=== PATIENT | male | born 1990 | race Caucasian/White ===

== ENCOUNTER 2025-06-09 12:58 | Day surgery (SDC) | payer OTHER ==
[2025-06-03 11:28] VITALS: BMI 25.9
[2025-06-09] MEDS ORDERED: KETAMINE HCL 100 MG/ML - 5ML VIAL ONE (13:55)
[2025-06-09] MEDS ORDERED: ETOMIDATE 20 MG/10 ML VIAL IVPUSH ONE (14:02)
[2025-06-09 15:19] VITALS: RESP 18; TEMP 97.2
[2025-06-09 16:26] VITALS: BP 118/72; PULSE 82
== END 2025-06-09 16:28 | disposition home or self-care (01) ==
LOC: FECT 12:58 → SUATTDRO 13:00 → FECT 16:28
PROVIDERS: ATTEND Student in an Organized Health Care Education/Training Program
PROC: GZB4ZZZ Other Electroconvulsive Therapy (ICD-10-PCS; principal; 2025-06-09 14:17)
DX: F32.A Depression, unspecified (principal)
CPT/HCPCS: 90870; 94760

== ENCOUNTER 2025-06-10 06:21 | Day surgery (SDC) | payer OTHER ==
[2025-06-07 07:55] VITALS: BMI 25.9
[2025-06-10 07:06] VITALS: RESP 16
[2025-06-10] MEDS ORDERED: KETAMINE HCL 100 MG/ML - 5ML VIAL ONE (07:51)
[2025-06-10] MEDS ORDERED: ETOMIDATE 20 MG/10 ML VIAL IVPUSH ONE (08:07)
[2025-06-10] MEDS ORDERED: PROPOFOL 20 ML ONE (08:08)
[2025-06-10 09:30] VITALS: TEMP 97.9
[2025-06-10] MEDS: ONDANSETRON *ODT* 4 MG TABLET ONE (10:06)
[2025-06-10 10:23] VITALS: BP 108/75; PULSE 88
== END 2025-06-10 10:10 | disposition home or self-care (01) ==
LOC: FECT 06:21
PROVIDERS: ATTEND Student in an Organized Health Care Education/Training Program
PROC: GZB4ZZZ Other Electroconvulsive Therapy (ICD-10-PCS; principal; 2025-06-10 08:19)
DX: F32.A Depression, unspecified (principal)
CPT/HCPCS: 90870; 94760; Q0162

== ENCOUNTER 2025-06-21 09:47 | Day surgery (SDC) | payer OTHER ==
[2025-06-20 11:48] VITALS: BMI 25.8
[2025-06-21] MEDS ORDERED: MIDAZOLAM HCL 2 MG/2 ML SINGLE DOSE VIAL ONE (11:29)
[2025-06-21] MEDS ORDERED: ONDANSETRON 4 MG/2 ML VIAL ONE (11:30)
[2025-06-21] MEDS ORDERED: DEXAMETHASONE SOD PHOSPHATE 4 MG/1 ML VIAL ONE (11:30)
[2025-06-21] MEDS ORDERED: ETOMIDATE 20 MG/10 ML VIAL IVPUSH ONE (11:30)
[2025-06-21] MEDS ORDERED: KETOROLAC TROMETHAMINE 30 MG/1 ML VIAL ONE (11:30)
[2025-06-21] MEDS ORDERED: KETAMINE HCL 100 MG/ML - 5ML VIAL ONE (11:33)
[2025-06-21] MEDS ORDERED: PROPOFOL 20 ML ONE (11:42)
[2025-06-21] MEDS ORDERED: GLYCOPYRROLATE 0.2 MG/1 ML VIAL ONE (11:43)
[2025-06-21] MEDS ORDERED: FAMOTIDINE 20 MG/50 ML IVPB 20 MG/50 ML MG IVPB ONE (12:01)
[2025-06-21 12:53] VITALS: RESP 16; TEMP 98
[2025-06-21 13:50] VITALS: BP 110/63; PULSE 82
== END 2025-06-21 13:45 | disposition home or self-care (01) ==
LOC: FECT 09:47
PROVIDERS: ATTEND Student in an Organized Health Care Education/Training Program
PROC: GZB4ZZZ Other Electroconvulsive Therapy (ICD-10-PCS; principal; 2025-06-21 11:48)
DX: F32.A Depression, unspecified (principal)
CPT/HCPCS: 90870; 94760

== ENCOUNTER 2025-06-23 09:46 | Day surgery (SDC) | payer OTHER ==
[2025-06-21 14:02] VITALS: BMI 25.8
[2025-06-23] MEDS ORDERED: DEXAMETHASONE SOD PHOSPHATE 4 MG/1 ML VIAL ONE (11:41)
[2025-06-23] MEDS ORDERED: ONDANSETRON 4 MG/2 ML VIAL ONE (11:41)
[2025-06-23] MEDS ORDERED: ETOMIDATE 20 MG/10 ML VIAL IVPUSH ONE (11:41)
[2025-06-23] MEDS ORDERED: KETAMINE HCL 200 MG/20 ML VIAL ONE (11:41)
[2025-06-23] MEDS ORDERED: KETOROLAC TROMETHAMINE 30 MG/1 ML VIAL ONE (11:41)
[2025-06-23] MEDS ORDERED: GLYCOPYRROLATE 0.2 MG/1 ML VIAL ONE (11:41)
[2025-06-23] MEDS ORDERED: PROPOFOL 20 ML ONE (11:50)
[2025-06-23] MEDS ORDERED: MIDAZOLAM HCL 2 MG/2 ML SINGLE DOSE VIAL ONE (11:51)
[2025-06-23] MEDS ORDERED: FAMOTIDINE 20 MG/50 ML IVPB 20 MG/50 ML MG IVPB ONE (12:03)
[2025-06-23 12:15] VITALS: RESP 16
[2025-06-23 12:45] VITALS: TEMP 97.8
[2025-06-23 13:15] VITALS: BP 112/67; PULSE 78
== END 2025-06-23 13:35 | disposition home or self-care (01) ==
LOC: FECT 09:46
PROVIDERS: ATTEND Student in an Organized Health Care Education/Training Program
PROC: GZB4ZZZ Other Electroconvulsive Therapy (ICD-10-PCS; principal; 2025-06-23 11:48)
DX: F32.A Depression, unspecified (principal)
CPT/HCPCS: 90870; 94760

== ENCOUNTER 2025-06-24 08:02 | Day surgery (SDC) | payer OTHER ==
[2025-06-23 09:25] VITALS: BMI 25.8
[2025-06-24 08:15] VITALS: RESP 16
[2025-06-24] MEDS ORDERED: KETAMINE HCL 100 MG/ML - 5ML VIAL ONE (09:36)
[2025-06-24] MEDS ORDERED: FAMOTIDINE 20 MG/50 ML IVPB 20 MG/50 ML MG IVPB ONE (09:36)
[2025-06-24] MEDS ORDERED: MIDAZOLAM HCL 2 MG/2 ML SINGLE DOSE VIAL ONE (09:36)
[2025-06-24] MEDS ORDERED: PROPOFOL 20 ML ONE (09:41)
[2025-06-24 10:57] VITALS: BP 116/64; PULSE 82; TEMP 98.2
== END 2025-06-24 12:06 | disposition home or self-care (01) ==
LOC: FECT 08:02
PROVIDERS: ATTEND Student in an Organized Health Care Education/Training Program
PROC: GZB4ZZZ Other Electroconvulsive Therapy (ICD-10-PCS; principal; 2025-06-24 09:49)
DX: F32.A Depression, unspecified (principal)
CPT/HCPCS: 90870; 94760

== ENCOUNTER 2025-06-30 08:16 | Day surgery (SDC) | payer OTHER ==
[2025-06-29 09:44] VITALS: BMI 25.8
[2025-06-30 08:46] VITALS: RESP 16
[2025-06-30] MEDS ORDERED: KETAMINE HCL 100 MG/ML - 5ML VIAL ONE (10:13)
[2025-06-30] MEDS ORDERED: MIDAZOLAM HCL 2 MG/2 ML SINGLE DOSE VIAL ONE (10:13)
[2025-06-30] MEDS ORDERED: ONDANSETRON 4 MG/2 ML VIAL ONE (10:31)
[2025-06-30] MEDS ORDERED: FAMOTIDINE 20 MG/50 ML IVPB 20 MG/50 ML MG IVPB ONE (10:38)
[2025-06-30 11:37] VITALS: TEMP 97.7
[2025-06-30 12:09] VITALS: BP 105/66; PULSE 86
== END 2025-06-30 12:40 | disposition home or self-care (01) ==
LOC: FECT 08:16
PROVIDERS: ATTEND Student in an Organized Health Care Education/Training Program
PROC: GZB4ZZZ Other Electroconvulsive Therapy (ICD-10-PCS; principal; 2025-06-30 09:30)
DX: F33.9 Major depressive disorder, recurrent, unspecified (principal)
CPT/HCPCS: 90870; 94760

== ENCOUNTER 2025-07-05 08:27 | Day surgery (SDC) | payer OTHER ==
[2025-07-05 09:15] VITALS: BMI 25.8
[2025-07-05] MEDS ORDERED: KETAMINE HCL 100 MG/ML - 5ML VIAL ONE (09:43)
[2025-07-05] MEDS ORDERED: FAMOTIDINE 20 MG/50 ML IVPB 20 MG/50 ML MG IVPB ONE (09:43)
[2025-07-05] MEDS ORDERED: MIDAZOLAM HCL 2 MG/2 ML SINGLE DOSE VIAL ONE (10:16)
[2025-07-05 11:18] VITALS: RESP 18; TEMP 97.4
[2025-07-05 15:56] VITALS: BP 103/67; PULSE 85
== END 2025-07-05 16:50 | disposition home or self-care (01) ==
LOC: FECT 08:27
PROVIDERS: ATTEND Student in an Organized Health Care Education/Training Program
PROC: GZB4ZZZ Other Electroconvulsive Therapy (ICD-10-PCS; principal; 2025-07-05 10:12)
DX: F33.2 Major depressive disorder, recurrent severe without psychotic features (principal)
CPT/HCPCS: 90870; 93005; 93010; 94760